=== PATIENT | female | born 1975 | race Caucasian/White ===

== ENCOUNTER 2024-02-05 17:58 | Emergency (ER) | payer MEDICARE, OTHER, SELFPAY ==
[2024-02-05 18:03] VITALS: BP 196/132
[2024-02-05 18:24] LABS: Hematocrit 43.7 % (37.0-47.0); Hemoglobin 14.8 g/dL (12.0-16.0); Mean Corp Hgb Conc. 33.9 g/dL (33.0-37.0); Mean Corpuscular Hgb 29.8 pg (27.0-31.0); Mean Corpuscular Volume 88.1 fL (81.0-99.0); Platelet Count 322 10^3/uL (130-400); Red Blood Cell Count 4.96 10^6/uL (4.20-5.40); Red Cell Dist. Width 13.2 % (11.5-14.5); White Blood Cell Count 10.4 10^3/uL (4.8-10.8)
[2024-02-05 18:36] LABS: Lactic Acid 0.7 mmol/L (0.7-2.0)
[2024-02-05 18:51] LABS: % Eosinophils 1.5 % (0-6); % Immature Granulocytes 0.3 % (0-0.5); % Lymphocytes 39.6 % (20.5-51.1); % Monocytes 5.9 % (1.7-9.3); % Neutrophils 51.7 % (42.2-75.2); Absolute Basophils 0.1 10^3/uL (0-0.2); Absolute Eosinophils 0.2 10^3/uL (0-0.7); Absolute Lymphocytes 4.1 10^3/uL (1.2-3.4); Absolute Monocytes 0.6 10^3/uL (0.1-0.6); Absolute Neutrophils 5.4 10^3/uL (1.4-6.5); Nucleated Red Blood Cells % 0 %
[2024-02-05 19:06] LABS: TSH Reflex To Free T4 6.06 uIU/ml (0.47-4.68)
[2024-02-05 19:07] LABS: ALT (SGPT) 20 U/L (0-35); AST (SGOT) 34 U/L (14-36); Albumin 5.1 g/dl (3.5-5.0); Alkaline Phosphatase 71 U/L (38-126); Blood Urea Nitrogen 9 mg/dl (7-17); Calcium 10.1 mg/dl (8.4-10.2); Carbon Dioxide 26 mmol/L (22-30); Chloride 100 mmol/L (98-107); Glucose 95 mg/dl (70-99); Lipase 98 U/L (23-300); Potassium 4.1 mmol/L (3.5-5.1); Sodium 140 mmol/L (135-145); Total Bilirubin 0.5 mg/dl (0.2-1.3); Total Protein 7.8 g/dl (6.3-8.2); eGFR > 60.00
[2024-02-05 19:36] LABS: Free T4 1.59 ng/dl (0.78-2.19)
--- NOTE | 2024-02-05 20:44 | ED.GENMED ---
History of Present Illness
General
Chief Complaint: Abdominal Pain
Source: patient
Exam Limitations: none
Time Seen by Provider: 02/05/24 20:28
History of Present Illness
History of Present Illness:
This is a 48 year old female that comes in with c/o right sided abd pain. States that she has been giving herself injection of Repatha since September 15. States that they are every 15 days. States that she did not take her injection on the as she
has had right sided abd pain. States that she feels like there is a knot in the right abd and now it is twisting and going into the back. States that this started around January 18 or . States that the pain is so bad that sne almost passed out
tonight. States that she has felt SOB with the pain, nauseated and had diarrhea but now her stool is hard. Denies any fever, chills, chest pain, vomiting, headache, urinary burning.
Past History
Past History
ED Past Medical History: Cancer (Thyroid Cancer) and Other (Graves disease, )
ED Past Surgical History: Gynecological (Hysterectomy, Uterine ablation) and Other (Thyroidectomy)
Social History
Tobacco: Smoker
Alcohol: Occasional
Personal:
Living: with family
Review of Systems
Review of Systems
All Other Systems: ROS reviewed and negative except as documented in HPI and ROS
Constitutional: Reports no symptoms; Denies fever or chills
EENT: Reports no symptoms
Respiratory: Reports trouble breathing; Denies cough
Cardiac: Reports no symptoms; Denies chest pain
ABD/GI: Reports abdominal pain, nausea, diarrhea and constipated; Denies vomiting
: Reports no symptoms; Denies dysuria, frequency or urgency
Musculoskeletal: Denies no symptoms
Skin: Reports no symptoms
Neurological: Reports dizzy; Denies headache
Psychiatric: Reports no symptoms
Phy Exam
General Physical Exam
General Presentation: well appearing and no apparent distress
General age: appears stated age
General Skin: warm and dry
General Habitus: normal
General Mental: alert
General Hydration: dry mucous membranes
ENT Exam
ENT Exam: TM's normal, pharynx normal and neck supple
Eye Exam
Eye Exam: EOMI
Cardiovascular Exam
Cardiovascular Exam: regular rate/rhythm, no edema, no murmur and normal peripheral pulses
Pulmonary Exam
Pulmonary Exam: lungs clear, no respiratory distress, no rales, chest non tender, no crackles, no rhonchi, no wheezing and no cough
Gastrointestinal Exam
Gastrointestinal Exam: normal bowel sounds, soft, no organomegaly, no pulsatile mass, non distended and tender (Right sided tenderness upper quadrant with palpation)
Musculoskeletal Exam
Musculoskeletal Exam: full ROM and no edema
Skin Exam
Skin Exam: normal color, warm/dry, no rash and no petechia
Psychiatric Exam
Psychiatric Exam: normal mood/affect
Course
Orders/Labs/Results
Orders:
Orders
02/05/24 18:11
Add On- LAB Urgent
Tests Added?: tsh reflex to T4
02/05/24 18:17
Complete Blood Count/With Diff Urgent
Comprehensive Metabolic Panel Urgent
Free T4 Urgent
Lactic Acid Urgent
Lipase Urgent
TSH Reflex To Free T4 Urgent
Comment: ADD ON
02/05/24 20:42
Iohexol [Omnipaque] See Protocol PO NOW STA
US Abdomen Complete/Upper Urgent
Comment:
Reason For Exam: right upper abd pain
Abnormal Lab Results
02/05/24
18:17
Absolute Lymphs (auto) 4.1 H 10^3/uL
(1.2-3.4)
Albumin 5.1 H g/dl
(3.5-5.0)
TSH (Reflex) 6.06 H uIU/ml
(0.47-4.68)
02/05/24 18:17
02/05/24 18:17
TSH slightly elevated. Free T4 normal at 1.59, Lipase normal 98
Vital Signs
Initial and Last Documented VS:
Initial Vital Signs
Temp Pulse Resp BP Pulse Ox
98.3 F 115 20 196/132 99
02/05/24 18:03 02/05/24 18:03 02/05/24 18:03 02/05/24 18:03 02/05/24 18:03
Last Documented Vital Signs
Temp Pulse Resp BP Pulse Ox
98.2 F 85 14 177/88 98
02/05/24 20:55 02/05/24 20:55 02/05/24 20:55 02/05/24 20:55 02/05/24 20:55
MDM/Problems Addressed
Differential Diagnosis Includes:
Gallbladder disease,
MDM/Problems Addressed:
This is a 48 year old female that comes in with c/o right sided abd pain. States that she was giving herself injection in the right abd and she has not severe abd pain. States that she stopped taking the medication and did not take her shot on the
30 of January.
Will check labs. US and CT scan. IV fluids
Patient states that she is unable to do oral contrast or IV contrast as this causes her to go into a Thyroid storm. Will cancel the CT and get the US.
back into see patient. Explained that her blood work shows that her TSH is elevated but the Free T4 is normal. US is negative for any acute process. This may be a reaction to the injections and may improve since patient has stopped taking the
medication. Patient to follow up with the family doctor. Return with any concerns
Chronic conditions affecting care: Cancer (Thyroid)
Acute Exacerbation and/or Progression of Chronic Illness:
NA
*Radiology
Radiology exam reviewed: radiology read reviewed (US-No cholelithiasis or bile duct dilation. )
*Pulse Oximetry
Patient hypoxic: no
*EKG
Interpreted by ED Provider?: NA
Rate: EKG- N/A
*Is Architect Interpretation
Rate: Is Architect- N/A
*Critical Care Note
Total Time (30-74mins, 75-104mins- exclusive of procedures): Not Applicable
ED Attending Note
-
Portions of this chart may have been created with voice recognition software.� Occasional wrong word or��sound alike� substitutions may have occurred due to the inherent limitations of voice recognition software.
Discharge Plan
Departure
Patient Disposition: Home (Routine Discharge)
Date of Disposition: 02/05/24
Time of Disposition: 22:53
Patient with high blood pressure during this ER visit?: Yes
Condition: Good
Covid-19: Not Applicable
Discharge Problem:
Right sided abdominal pain
Instructions: Abdominal Pain, BLOOD PRESSURE
Prescriptions:
No Action
tizanidine 2 mg Tablet
2 mg PO TID PRN (Reason: spasms)
levothyroxine 88 mcg Tablet
88 mcg PO DAILY
alprazolam [Xanax] 0.5 mg Tablet
0.5 mg PO HS
alprazolam [Xanax] 0.25 mg Tablet
0.25 mg PO BID PRN (Reason: anxiety)
albuterol 90 mcg/actuation Aerosol
90 mcg INHALATION Q6 PRN (Reason: wheezing)
Referrals:
Stephanie Townsend DO [Family Provider] - Follow up in 2-3 days
Activity Restrictions/Additional Instructions:
As discussed, your blood work shows that your TSH is slightly elevated at 6.06 but your free T4 is normal. Please follow up with the family doctor for recheck. Your Ultrasound is normal. This discomfort may go away since you have stopped the
injection. You may take Tylenol or Ibuprofen as needed for pain. IF YOU HAVE ANY OTHER CONCERNS PLEASE RETURN TO THE EMERGENCY ROOM.
Interventions
Interventions:
*Risk Screen - Suicide Last Done: 02/05/24 20:53
*General Assessment Last Done: 02/05/24 20:58
*Neglect/Abuse Screening Last Done: 02/05/24 20:53
*ED COVID-19 Vaccine History Last Done: 02/05/24 20:53
KK-[id number]-Jcpgkpmxmd Assessment Last Done: 02/05/24 20:56
Discharge Date and Time
Print Language: ITALIAN
[2024-02-05 20:52] VITALS: BMI 24.1
[2024-02-05 20:55] VITALS: BP 177/88
[2024-02-05 23:19] VITALS: BP 144/102
== END 2024-02-05 23:25 | disposition home or self-care (01) ==
LOC: EMR 17:58
PROVIDERS: Emergency Medicine; EMERGENCY PHYSICIAN Emergency Medicine; FAMILY PHYSICIAN Family Medicine
DX: R10.9 Unspecified abdominal pain (principal); F17.200 Nicotine dependence, unspecified, uncomplicated; R03.0 Elevated blood-pressure reading, without diagnosis of hypertension
CPT/HCPCS: 99284; 76700; 80053; 83605; 83690; 84439; 84443; 85025